=== PATIENT | female | born 1990 ===

== ENCOUNTER 2016-08-15 16:13 | Outpatient (CLI) | payer OTHER | END 2016-08-15 16:14 | LOC: LABRHC 16:13 | PROVIDERS: ATTEND Physician Assistant | DX: L02.511 Cutaneous abscess of right hand (principal) | CPT/HCPCS: 87070; 87186 ==

== ENCOUNTER 2016-09-01 09:39 | Outpatient (CLI) | payer OTHER ==
[2016-09-01 10:08] LABS: BASOPHILS % 0.8 (0.0-1.5); EOSINOPHILS % 4.9 % (0.0-6.8); MEAN CORPUSCULAR HEMOGLOBIN 28.7 pg (28.0-34.0); MEAN CORPUSCULAR VOLUME 88.7 fl (80.0-100.0); MONOCYTES % 4.5 % (0.0-11.0); NEUTROPHILS # 2.6 # k/uL (1.4-7.7)
[2016-09-01 10:26] LABS: eGFR (African) > 60; eGFR (Non-African) > 60
== END 2016-09-01 09:40 ==
LOC: LAB 09:39
PROVIDERS: ATTEND Physician Assistant
DX: R53.83 Other fatigue (principal)
CPT/HCPCS: 36415; 80053; 84443; 85025

== ENCOUNTER 2016-09-12 08:54 | Outpatient (CLI) | payer OTHER | END 2016-09-12 08:55 | LOC: OUT 08:54 | PROVIDERS: ATTEND General Practice | DX: N94.0 Mittelschmerz (principal); R10.2 Pelvic and perineal pain | CPT/HCPCS: 99213 ==

== ENCOUNTER 2016-10-10 09:21 | Outpatient (CLI) | payer OTHER ==
[2016-10-10 12:27] LABS: BASOPHILS % 0.8 (0.0-1.5); EOSINOPHILS % 2.1 % (0.0-6.8); MEAN CORPUSCULAR HEMOGLOBIN 28.6 pg (28.0-34.0); MEAN CORPUSCULAR VOLUME 86.8 fl (80.0-100.0); MONOCYTES % 5.1 % (0.0-11.0); NEUTROPHILS # 3.7 # k/uL (1.4-7.7)
[2016-10-10 22:31] LABS: RUBELLA AB, IgG 444.5 IU/mL
== END 2016-10-10 09:22 ==
LOC: OUT 09:21
PROVIDERS: ATTEND General Practice
DX: E84.9 Cystic fibrosis, unspecified (principal)
CPT/HCPCS: 36415; 81220; 81224; 82947; 84439; 84443; 85025; 86592; 86703; 86762; 86787; 87340; 99211

== ENCOUNTER 2016-10-16 20:41 | Emergency (ER) | payer OTHER | END 2016-10-16 20:44 | LOC: ED 20:41 | DX: Z53.9 Procedure and treatment not carried out, unspecified reason (principal) ==